=== PATIENT | male | born 1960 | race Caucasian/White ===

== ENCOUNTER → 2016-11-16 | Outpatient (CLI) | payer BC ==
--- NOTE | 2016-11-19 09:54 | MR ---
EXAMINATION: MRI of the right hip HISTORY: Osteoarthritis COMPARISON: None TECHNIQUE: Multiplanar and multisequence images obtained of the right hip without contrast. FINDINGS: There is severe joint space narrowing within the right hip is mild widening of the femoral head. There is moderate subchondral edema and cystic change within the femoral head and neck and ri ght acetabulum. There is a small joint effusion. Mild osteophytes are also noted. There is a trace periarticular edema within the adjacent soft tissues. The left hip appears grossly preserved. The SI joints are symmetric. The visualized intrapelvic structures appear normal. There i s a trace greater trochanteric bursitis bilaterally. IMPRESSION: 1. Advanced osteoarthritic changes and joint space narrowing within the right hip with underlying charan ne marrow edema within the proximal right femur and within the acetabulum.
== END ==
LOC: MW.MRI 13:53
PROVIDERS: ATTEND Family Medicine
DX: M16.11 Unilateral primary osteoarthritis, right hip (principal)
CPT/HCPCS: 73721-26-RT; 73721-RT

== ENCOUNTER 2018-01-14 10:42 | Emergency (ER) | payer BC ==
[2018-01-14 11:04] VITALS: BP 125/72
[2018-01-14] MEDS ORDERED: Sodium Chloride 0.9% 2.5 ML Syringe FLUSH PRN (11:12)
[2018-01-14] MEDS ORDERED: Sodium Chloride 0.9% 10 ML Syringe FLUSH PRN (11:12)
[2018-01-14] MEDS ORDERED: Ketorolac 30 MG/ML SDV IVPUSH ONE (11:13)
--- NOTE | 2018-01-14 11:14 | EDM.PDOC ---
ED HPI GENERAL MEDICAL PROBLEM - General Chief Complaint: Genitourinary Problem Stated Complaint: SWOLLEN TESTICLES Time Seen by Provider: 01/14/18 11:04 - History of Present Illness INITIAL COMMENTS - FREE TEXT/NARRATIVE: HISTORY AND PHYSICAL: History of present illness: The patient is a 57-year-old male who follows with Dr. Higginbotham at [facility] and has history of hypertension and BPH and presents with complaints of left testicular pain and swelling that started over the last 1-2 days. The patient states that he was wearing coveralls 2 days ago and they usually rub his scrotal area and that occurred 2 days ago but he noticed yesterday that the left testicle and scrotum was swollen and painful and he feels that the pain is radiating up into his groin and into his lower back. The patient has a history of BPH and takes Flomax and he does state that he occasionally has issues with initiating a stream but that is not new or different. He's had no dysuria or penile discharge and no frequency or flank pain. He says that there is a possibility of an STD. He has no abdominal pain no vomiting or diarrhea but he said that last night he felt feverish but did not take his temperature and had chills. He has been eating and drinking normally. He's had no direct trauma to the area. He has no midline back pain or leg pain. Review of systems: As per history of present illness and below otherwise all systems reviewed and negative. Past medical history: As per history of present illness and as reviewed below otherwise noncontributory. Surgical history: As per history of present illness and as reviewed below otherwise noncontributory. Social history: No reported history of drug or alcohol abuse. Family history: As per history of present illness and as reviewed below otherwise noncontributory. Physical exam: General: Well-developed well-nourished man who is nontoxic and moves easily in the ED. Vital signs are noted by me HEENT: Atraumatic, normocephalic, negative for conjunctival pallor or scleral icterus, mucous membranes moist, throat clear, neck supple, nontender, trachea midline. Lungs: Clear to auscultation, breath sounds equal bilaterally, chest nontender. Heart: S1S2, regular rate and rhythm no overt murmurs Abdomen: Soft, nondistended, nontender. Negative for masses or hepatosplenomegaly. Negative for costovertebral tenderness. Pelvis: Stable nontender. Genitourinary: Testicles are descended bilaterally and the right testicle is without swelling or tenderness as is the right hemiscrotum. The left testicle is mildly swollen and tender and the scrotal skin on the left side is very indurated and thickened and erythematous. This does not extend posteriorly nor is there any erythema swelling or tenderness to the perineum behind the scrotum and in the perianal area. There are no skin breaks or lesions seen on the scrotum. There is no discrete spermatic cord tenderness or inguinal adenopathy. There is no discrete suprapubic tenderness on palpation. Rectal: Deferred. Extremities: Atraumatic, negative for cords or calf pain. Neurovascular unremarkable. Neuro: Awake, alert, oriented. Cranial nerves II through XII unremarkable. Cerebellum unremarkable. Motor and sensory unremarkable throughout. Exam nonfocal. Diagnostics: CBC CMP UA, urine for gonorrhea and chlamydia, urine culture, scrotal ultrasound Therapeutics: IV fluids Toradol Rocephin Zithromax oral potassium This was discussed with our urologist Dr. Higginbotham at 12:50 PM. He agrees with treating the epididymitis with Rocephin and Zithromax and he agrees with Levaquin for discharge. He will follow the patient up. I discussed all testing results with the patient and his need to keep a close eye on this, eat more potassium-rich foods, refrain from sexual intercourse for a week, and call and follow-up with the urologist. Impression: Left testicular/scrotal pain, epididymitis/UTI/scrotal cellulitis Definitive disposition and diagnosis as appropriate pending reevaluation and review of above. Left Perineal Area Pain Score (Numeric/FACES): 5 - Related Data Allergies Allergy/AdvReac Type Severity Reaction Status Date / Time Dairy Products Allergy Abdominal Verified 01/14/18 11:04 Cramps Home Meds: Home Meds Celecoxib [CeleBREX] 200 mg PO DAILY 01/14/18 [History] Docusate Sodium [Colace] 100 mg PO ASDIRECTED 01/14/18 [History] Escitalopram [Lexapro] 20 mg PO DAILY 01/14/18 [History] Hydrochlorothiazide 25 mg PO DAILY 01/14/18 [History] Lisinopril 10 mg PO DAILY 01/14/18 [History] Rosuvastatin Calcium 20 mg PO DAILY 01/14/18 [History] Tamsulosin [Flomax] 1 cap PO DAILY 01/14/18 [History] Ubidecarenone [Co Q-10] 200 mg PO DAILY 01/14/18 [History] buPROPion HCl [buPROPion SR] 200 mg PO BID 01/14/18 [History] traMADol [Ultram] 50 mg PO ASDIRECTED 01/14/18 [History] ED ROS GENERAL - Review of Systems Review Of Systems: ROS reveals no pertinent complaints other than HPI. ED EXAM, GENERAL - Physical Exam Exam: See Below (see dictation) Course - Vital Signs Last Recorded V/S: Last Vital Signs Temp 36.6 C 01/14/18 11:01 Pulse 92 01/14/18 11:01 Resp 18 01/14/18 11:01 BP 125/72 01/14/18 11:01 Pulse Ox 97 01/14/18 11:01 - Orders/Labs/Meds Orders: Active Orders 24 hr Category Date Time Status CHLAMYDIA AND GONORRHEA BY TMA Stat Lab 01/14/18 11:20 Received CULTURE URINE [RM] Stat Lab 01/14/18 11:20 Ordered UA W/MICROSCOPIC [URIN] Stat Lab 01/14/18 11:20 Ordered Sodium Chloride 0.9% [Saline Flush] Med 01/14/18 11:12 Active 10 ml FLUSH ASDIRECTED PRN Sodium Chloride 0.9% [Saline Flush] Med 01/14/18 11:12 Active 2.5 ml FLUSH ASDIRECTED PRN cefTRIAXone [Rocephin in Dextrose,Iso-Osm 1 GM/50 ML] 1 Med 01/14/18 12:59 Ordered gm Premix Bag 1 bag IV ONETIME Saline Lock Insert [OM.PC] Stat Oth 01/14/18 11:12 Ordered Medication Orders Ceftriaxone Sodium/Dextrose 1 (gm/ Premix) 50 mls @ 100 mls/hr IV ONETIME ONE Stop: 01/14/18 13:28 Sodium Chloride (Saline Flush) 10 ml FLUSH ASDIRECTED PRN PRN Reason: Keep Vein Open Last Admin: 01/14/18 11:39 Dose: 10 ml Sodium Chloride (Saline Flush) 2.5 ml FLUSH ASDIRECTED PRN PRN Reason: Keep Vein Open Last Admin: 01/14/18 11:39 Dose: 2.5 ml Labs: Laboratory Tests 01/14/18 01/14/18 01/14/18 Range/Units 11:20 11:20 11:20 WBC 13.68 H (4.0-11.0) K/uL RBC 4.63 (4.50-5.90) M/uL Hgb 14.7 (13.0-17.0) g/dL Hct 42.1 (38.0-50.0) % MCV 90.9 (80.0-98.0) fL MCH 31.7 (27.0-32.0) pg MCHC 34.9 (31.0-37.0) g/dL RDW Std Deviation 44.0 (28.0-62.0) fl RDW Coeff of Yamini 13 (11.0-15.0) % Plt Count 315 (150-400) K/uL MPV 10.50 (7.40-12.00) fL Neut % (Auto) 65.3 (48.0-80.0) % Lymph % (Auto) 19.3 (16.0-40.0) % Todd % (Auto) 15.0 (0.0-15.0) % Eos % (Auto) 0.3 (0.0-7.0) % Baso % (Auto) 0.1 (0.0-1.5) % Neut # (Auto) 8.9 H (1.4-5.7) K/uL Lymph # (Auto) 2.6 H (0.6-2.4) K/uL Todd # (Auto) 2.1 H (0.0-0.8) K/uL Eos # (Auto) 0.0 (0.0-0.7) K/uL Baso # (Auto) 0.0 (0.0-0.1) K/uL Nucleated RBC % 0.0 /100WBC Nucleated RBCs # 0 K/uL Sodium 137 (136-148) mmol/L Potassium 2.9 L (3.5-5.1) mmol/L Chloride 98 (98-107) mmol/L Carbon Dioxide 26.3 (21.0-32.0) mmol/L BUN 16 (7.0-18.0) mg/dL Creatinine 1.3 (0.8-1.3) mg/dL Est Cr Clr Drug Dosing 59.19 mL/min Estimated GFR (MDRD) 56.5 ml/min Glucose 106 (74-106) mg/dL Calcium 9.0 (8.5-10.1) mg/dL Total Bilirubin 0.7 (0.2-1.0) mg/dL AST 19 (15-37) IU/L ALT 27 (14-63) IU/L Alkaline Phosphatase 91 (46-116) U/L Total Protein 8.0 (6.4-8.2) g/dL Albumin 4.0 (3.4-5.0) g/dL Globulin 4.0 H (2.0-3.5) g/dL Albumin/Globulin Ratio 1.0 L (1.3-2.8) Urine Color YELLOW Urine Appearance SLT CLOUDY Urine pH 6.0 (5.0-8.0) Ur Specific Challenge 1.025 (1.001-1.035) Urine Protein TRACE (NEGATIVE) mg/dL Urine Glucose (UA) NEGATIVE (NEGATIVE) mg/dL Urine Ketones NEGATIVE (NEGATIVE) mg/dL Urine Occult Blood MODERATE (NEGATIVE) Urine Nitrite NEGATIVE (NEGATIVE) Urine Bilirubin NEGATIVE (NEGATIVE) Urine Urobilinogen 1.0 (<2.0) EU/dL Ur Leukocyte Esterase SMALL (NEGATIVE) Urine RBC 3-6 (0-2/HPF) Urine WBC 80-85 (0-5/HPF) Ur Epithelial Cells FEW (NONE-FEW) Urine Bacteria FEW (NEGATIVE) Urine Mucus MODERATE (NONE-MOD) Meds: Medications Generic Name Dose Route Start Last Admin Trade Name Freq PRN Reason Stop Dose Admin Ceftriaxone Sodium/Dextrose 1 50 mls @ 100 mls/hr 01/14/18 12:59 gm/ Premix IV 01/14/18 13:28 ONETIME ONE Sodium Chloride 10 ml 01/14/18 11:12 01/14/18 11:39 Saline Flush FLUSH 10 ml ASDIRECTED PRN Administration Keep Vein Open Sodium Chloride 2.5 ml 01/14/18 11:12 01/14/18 11:39 Saline Flush FLUSH 2.5 ml ASDIRECTED PRN Administration Keep Vein Open Discontinued Medications Generic Name Dose Route Start Last Admin Trade Name Freq PRN Reason Stop Dose Admin Azithromycin 1,000 mg 01/14/18 12:59 Zithromax PO 01/14/18 13:00 ONETIME ONE Sodium Chloride 1,000 mls @ 999 mls/hr 01/14/18 11:15 01/14/18 11:36 Normal Saline IV 01/14/18 12:15 999 mls/hr STAT ONE Administration Ketorolac Tromethamine 30 mg 01/14/18 11:13 01/14/18 11:36 Toradol IVPUSH 01/14/18 11:14 30 mg ONETIME ONE Administration Potassium Chloride 40 meq 01/14/18 12:50 Klor-Con M20 PO 01/14/18 12:51 ONETIME ONE Departure - Departure Time of Disposition: 13:01 Disposition: Home, Self-Care 01 Condition: Good Clinical Impression: UTI, Urinary tract infectious disease, Cellulitis of scrotum, Epididymitis - Discharge Information Referrals: PCP,None [Primary Care Provider] - Forms: ED Department Discharge Additional Instructions: The following information is given to patients seen in the emergency department who are being discharged to home. This information is to outline your options for follow-up care. We provide all patients seen in our emergency department with a follow-up referral. The need for follow-up, as well as the timing and circumstances, are variable depending upon the specifics of your emergency department visit. If you don't have a primary care physician on staff, we will provide you with a referral. We always advise you to contact your personal physician following an emergency department visit to inform them of the circumstance of the visit and for follow-up with them and/or the need for any referrals to a consulting specialist. The emergency department will also refer you to a specialist when appropriate. This referral assures that you have the opportunity for followup care with a specialist. All of these measure are taken in an effort to provide you with optimal care, which includes your followup. Under all circumstances we always encourage you to contact your private physician who remains a resource for coordinating your care. When calling for followup care, please make the office aware that this follow-up is from your recent emergency room visit. If for any reason you are refused follow-up, please contact the [facility] emergency department at and ask to speak to the emergency department charge nurse. [facility] [address] [place] [address] [facility] Primary care- Internal Medicine and [facility] [address] [place] [id number] Push hydration and take antibiotics as directed starting tomorrow. Wear supportive briefs and monitor the scrotal skin swelling and changes or improvement. Please call and schedule a follow-up appointment with our urologist Dr. Higginbotham using resources given to above. Please refrain from sexual intercourse for the next 7 days while you're on antibiotics. - My Orders Last 24 Hours: My Active Orders 01/14/18 11:12 Sodium Chloride 0.9% [Saline Flush] 10 ml FLUSH ASDIRECTED PRN Sodium Chloride 0.9% [Saline Flush] 2.5 ml FLUSH ASDIRECTED PRN Saline Lock Insert [OM.PC] Stat 01/14/18 11:20 CHLAMYDIA AND GONORRHEA BY TMA Stat CULTURE URINE [RM] Stat UA W/MICROSCOPIC [URIN] Stat 01/14/18 12:59 cefTRIAXone [Rocephin in Dextrose,Iso-Osm 1 GM/50 ML] 1 gm Premix Bag 1 bag IV ONETIME - Assessment/Plan Last 24 Hours: My Active Orders 01/14/18 11:12 Sodium Chloride 0.9% [Saline Flush] 10 ml FLUSH ASDIRECTED PRN Sodium Chloride 0.9% [Saline Flush] 2.5 ml FLUSH ASDIRECTED PRN Saline Lock Insert [OM.PC] Stat 01/14/18 11:20 CHLAMYDIA AND GONORRHEA BY TMA Stat CULTURE URINE [RM] Stat UA W/MICROSCOPIC [URIN] Stat 01/14/18 12:59 cefTRIAXone [Rocephin in Dextrose,Iso-Osm 1 GM/50 ML] 1 gm Premix Bag 1 bag IV ONETIME
[2018-01-14] MEDS ORDERED: Sodium Chloride 0.9% 1,000 ML IV ONE (11:15)
--- NOTE | 2018-01-14 12:40 | US ---
EXAMINATION: Scrotal duplex ultrasound HISTORY: Swelling COMPARISON: None TECHNIQUE: Grayscale, color Doppler, and spectral Doppler imaging obtained. FINDINGS: Multilevel and right testicles are normal in size, contour, and echogenicity demonstrating normal color and spectral Doppler flow. The right epididymis appears normal. The left epididymis is m ildly enlarged and heterogeneous with increased color Doppler flow. Trace bilateral hydroceles. No va ricoceles. Moderate left scrotal wall thickening without evidence of an abscess. IMPRESSION: 1. Mildly enlarged, heterogeneous, and vascularity left epididymis which could represent epididymitis . 2. Moderate left scrotal wall thickening without evidence of an abscess.
[2018-01-14] MEDS ORDERED: Potassium Chloride 20 MEQ Tab.ER PO ONE (12:50)
[2018-01-14] MEDS ORDERED: Azithromycin 250 MG Tab PO ONE (12:59)
[2018-01-14] MEDS ORDERED: cefTRIAXone 1 GM in Premix Bag 1 BAG IV ONE (12:59)
[2018-01-14] MEDS ORDERED: cefTRIAXone 1,000 MG in Lidocaine 1% 4 ML IM ONE (13:10)
== END 2018-01-14 14:01 | disposition home or self-care (01) ==
LOC: MW.ED 10:42
DX: N39.0 Urinary tract infection, site not specified (principal); N45.1 Epididymitis; Z79.899 Other long term (current) drug therapy; Z91.011 Allergy to milk products
CPT/HCPCS: 36415; 76870; 80053; 81001; 85025; 87086; 87491; 87591; 93976; 96361; 96372; 96374; 99284; A9270; J0696; J1885; J2001; J7040; 99283